=== PATIENT | male | born 1950 | race Caucasian/White ===

== ENCOUNTER → 2017-08-03 | Outpatient (CLI) | payer BC ==
[~2017-08-03] MED LIST: AMLO-110 PO; CIPR-255 PO; CRS10 PO; DUTA0.5C PO; LISI-725 PO; SILO8CAP PO
== END | disposition home or self-care (01) ==
LOC: C.LABPBG 14:52
PROVIDERS: ATTEND Urology
DX: N40.1 Benign prostatic hyperplasia with lower urinary tract symptoms (principal); R32 Unspecified urinary incontinence; R39.12 Poor urinary stream; R33.9 Retention of urine, unspecified